=== PATIENT | female | born 1995 | race Caucasian/White ===

== ENCOUNTER 2016-11-22 21:20 | Emergency (ER) | payer OTHER ==
[~2016-11-22 21:20] MED LIST: IBUP-232 PO; JUNETAB PO; ZOFR4TAB3 SL; ZOLP10TA3 PO
--- NOTE | 2016-11-22 22:54 | PD ---
HPI Chief Complaint right lower quadrant pain Date Seen: November 22, 2016 Time Seen: 22:00 Travel History International Travel<30 Days: No Contact w/Intl Traveler<30Days: No Known Affected Area: No History of Present Illness HPI Pt is a 21 y/o with IUP at 16 wks who presents with c/o RLQ pain in groin area. Pt reports intermittent pain for past week, but continuous since this morning. Pain is constant, sharp. denies vb, lof, vag discharge. +FM denies diarrhea, dysuria, constipation, fever did have emesis x 2 today but ate at 5 pm Para: 1 : 2 History Past Medical History Medical History: Denies Significant Hx Obstetric History Obstetric History 2013 primary CD for "did not dilate past 2 cm" Past Surgical History Narrative Surgical Family History Family History: Negative Social History Alcohol Use: No Tobacco Use: No Substance Abuse: No Allergies-Medications (Allergen,Severity, Reaction): Coded Allergies: No Known Allergies (Verified , 07/31/15) Home Meds Active Scripts Ondansetron (Zofran ODT)4 Mg Tab4 Mg SL Q6H PRN (nausea) #30 TAB FOR NAUSEA/VOMITING Prov:Brady Mcknight MD 08/01/15 Ibuprofen (Motrin)600 Mg Pab494 Mg PO TID #45 TAB Prov:Brady Mcknight MD 08/01/15 Reported Medications Norethindrone Acet & Eth Estra (08/13)21 Tab Pack1 Tab PO DAILY 07/31/15 Zolpidem Tartrate (Ambien 10 Mg Tab)10 Mg Tab10 Mg PO HS 07/31/15 Review of Systems General / Constitutional: No: Fever, Chills Eyes: No: Diploplia, Blurred Vision, Visual changes, Pain, Photophobia, Other Cardiovascular: No: Irregular Rhythm, Chest Pain or Discomfort, Palpitations, Tachycardia, Syncope, Varicosities, Edema, Cyanosis, Other Respiratory: No: Cough, Short of Breath, Wheezing, Other Gastrointestinal: Nausea, Vomiting, Abdominal Pain, No: Constipation Genitourinary: No: Dysuria, Vaginal Bleeding Musculoskeletal: No: Limited ROM, Weakness, Cramping, Edema, Pain, Other Skin: No Rash, No Itching, No Dryness, No Lumps, No Change in Pigmentation, No Change in Nails, No Alopecia, No Lesions, No Breast Lumps, No Breast Tenderness , No Breast Swelling, No Other Neurologic: No: Weakness, Dizziness, Syncope, Focal Abnormalities, Coordination Problem, Headache, Slurred Speech, Seizures, Other Psychiatric: No: Anxiety, Depression, Suicidal Ideations, Disorder of Thought, Mood Disorder, Substance Abuse, Homicidal Ideation, Other Endocrine: No: Heat Intolerance, Cold Intolerance, Polydipsia, Polyuria, Other Hematologic/Lymphatic: No Easy Bruising, No Lymph Node Enlargement, No Other Physical Exam 128/77, 90, 18 Narrative GENERAL: Well-nourished, well-developed patient. SKIN: Warm and dry. HEAD: Normocephalic and atraumatic. EYES: No scleral icterus. No injection or drainage. ENT: No nasal drainage noted. Mucous membranes pink. Airway patent. NECK: Supple, trachea midline. No JVD. CARDIOVASCULAR: Regular rate and rhythm without murmurs, gallops, or rubs. RESPIRATORY: Breath sounds equal bilaterally. No accessory muscle use. . ABDOMEN/GI: Abdomen soft,, bowel sounds present, no rebound, no guarding Gravid mildly tender to palpation right groin/LQ GENITOURINARY: External Genitalia: intact and normal in appearance BUS glands: [wnl-] Cervix: post Dilatation: closed Effacement: firm/long Station: high Presentation: - Membranes: intact Uterine Contractions: none FHT's: 136 by doppler EXTREMITIES: No cyanosis or edema. BACK: Nontender without obvious deformity. No CVA tenderness. NEUROLOGICAL: Awake and alert. Motor and sensory grossly within normal limits. Five out of 5 muscle strength in all muscle groups. Normal speech. Data Data Vital Signs Reviewed: Yes MDM Narrative Course / MDM 21 y/o with 16 wk IUP and right lower quadrant pain --suspect round ligament pain, potentially exacerbated by previous --discussed supportive measures such as rest, heat/ice, tylenol, belly band --advised pt to return for worsening symptoms or fever, n/v (rule out appy) Diagnosis Diagnosis: Primary Impression: Right lower quadrant abdominal pain Additional Impression: 16 weeks gestation of Disposition: 01 DISCHARGE HOME Condition: Stable Patient Instructions: General Instructions, Movement (ED), Abdominal Pain in (ED) Departure Forms: Tests/Procedures Tyree Bowers MD November 22, 2016 22:54
== END 2016-11-22 22:59 | disposition home or self-care (01) ==
LOC: HOBED 21:20
DX: O26.892 Other specified pregnancy related conditions, second trimester (principal); R10.31 Right lower quadrant pain; Z3A.16 16 weeks gestation of pregnancy
CPT/HCPCS: 99283

== ENCOUNTER 2017-03-23 12:54 | Emergency (ER) | payer OTHER ==
[2017-03-23] VITALS (12 sets, daily range): BP systolic 96–145; BP diastolic 48–87; PULSE 96–129; RESP 18; TEMP 98.1
--- NOTE | 2017-03-23 13:42 | PD ---
HPI Chief Complaint Blurry vision and blood pressure elevation Date Seen: Mar 23, 2017 Travel History International Travel<30 Days: No Contact w/Intl Traveler<30Days: No Known Affected Area: No History of Present Illness HPI Patient is 22-year-old white female previous now at [address] Farris for care. 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 She checked her blood pressure and was 150/ 90 she has no history of hypertension during this or previously in her life, she denies pain leakage of fluid or bleeding. heart tones are reactive and she is having no regular contractions. Her blood pressure here on OB ED is 130 over 70s on 2 checks, she has no protein in her urine and waiting on the lab PIH values Weeks Gestation: 33 Para: 1 : 2 History Obstetric History Obstetric History 1 Past Surgical History Narrative Surgical 1 Social History Alcohol Use: No Tobacco Use: No Substance Abuse: No Allergies-Medications (Allergen,Severity, Reaction): Coded Allergies: No Known Allergies (Verified , 07/31/15) Home Meds Active Scripts Ondansetron (Zofran ODT) 4 Mg Tab, 4 MG SL Q6H Y for nausea, #30 TAB FOR NAUSEA/VOMITING Prov:Brady Mcknight MD 08/01/15 Ibuprofen (Motrin) 600 Mg Tab, 600 MG PO TID, #45 TAB Prov:Brady Mcknight MD 08/01/15 Reported Medications Norethindrone Acet & Eth Estra (08/13) 21 Tab Pack, 1 TAB PO DAILY, PACK 07/31/15 Zolpidem Tartrate (Ambien 10 Mg Tab) 10 Mg Tab, 10 MG PO HS, TAB 07/31/15 Review of Systems General / Constitutional: No: Fever, Weight Gain, Chills, Other Eyes: Blurred Vision, No: Diploplia, Visual changes, Pain, Photophobia HENT: No: Headaches, Vertigo, Lightheadedness Cardiovascular: No: Irregular Rhythm, Chest Pain or Discomfort, Palpitations, Tachycardia, Syncope, Varicosities, Edema, Cyanosis Respiratory: No: Cough, Short of Breath, Other Gastrointestinal: Abdominal Pain, No: Nausea, Vomiting, Diarrhea Genitourinary: No: Decreased Urinary Output, Oliguria Musculoskeletal: No: Limited ROM, Weakness, Cramping, Edema, Pain Skin: No Rash, No Itching, No Dryness, No Lumps, No Change in Pigmentation, No Change in Nails, No Alopecia, No Lesions Neurologic: No: Weakness, Dizziness, Syncope, Focal Abnormalities, Coordination Problem, Headache, Slurred Speech, Seizures Psychiatric: No: Depression, Suicidal Ideations, Homicidal Ideation Endocrine: No: Heat Intolerance, Cold Intolerance, Polydipsia, Polyuria, Other Physical Exam Vital Signs Date Time Temp Pulse Resp B/P (MAP) Pulse Ox O2 Delivery O2 Flow Rate FiO2 03/23/17 13:26 98.1 18 03/23/17 13:15 114 136/75 (95) 03/23/17 13:14 114 131/78 (95) Narrative GENERAL: Well-nourished, well-developed patient. SKIN: Warm and dry. HEAD: Normocephalic and atraumatic. EYES: No scleral icterus. No injection or drainage. ENT: No nasal drainage noted. Mucous membranes pink. Airway patent. NECK: Supple, trachea midline. No JVD. CARDIOVASCULAR: Regular rate and rhythm without murmurs, gallops, or rubs. RESPIRATORY: Breath sounds equal bilaterally. No accessory muscle use. BREASTS: Bilateral exam showed no masses , no retractions, no nipple discharge. ABDOMEN/GI: Abdomen soft, non-tender, bowel sounds present, no rebound, no guarding Gravid to [-33] weeks size Fundal Height: [33-] GENITOURINARY: External Genitalia: intact and normal in appearance BUS glands: [-] Cervix: [0-] Dilatation: [0-] Effacement: [-thick] Station: [-3] Presentation: [-vtx] Membranes: [intact ] Uterine Contractions: [-no reg] FHT's: Category: [1-] Baseline: [-133] Reactive: [-yes] Variability: [-mod] Decels: [none-] EXTREMITIES: No cyanosis or edema. BACK: Nontender without obvious deformity. No CVA tenderness. NEUROLOGICAL: Awake and alert. Motor and sensory grossly within normal limits. Five out of 5 muscle strength in all muscle groups. Normal speech. 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 She does describe blurry vision to some extent here also minimal abdominal pain, heart rate tracing is reactive and no contractions. Blood pressures here on OB ED NORMAL limits 130 over 70s or better, negative urine protein, CBC CMP within normal limits, she has no pretibial edema and reflexes within normal limits Plan Patient patient's evaluations within normal limits. Preeclampsia this time. The recommend the patient to be off her feet as much as possible over the next several days and the planning long-term when she is at work to use a foreshortened hours or take longer breaks were both and she may be that she has to quit altogether due to blood pressure issues. She is scheduled for follow- up with Dr. Farris next week but can see him sooner if symptoms persist Diagnosis Diagnosis: Primary Impression: Hypertension affecting in third trimester Disposition: 01 DISCHARGE HOME Condition: Stable Wei Del Real II, MD Mar 23, 2017 13:41
[2017-03-23 14:05] LABS: HEMATOCRIT 33.5 % (35.0-46.0); MEAN CELL VOLUME 90.7 FL (80.0-100.0); MEAN CORPUSCULAR HEMOGLOBIN 30.4 PG (27.0-34.0); MEAN CORPUSCULAR HGB CONC 33.5 % (32.0-36.0); PLATELET COUNT 240 TH/MM3 (150-450); RED BLOOD COUNT 3.69 MIL/MM3 (4.00-5.30); RED CELL DISTRIBUTION WIDTH 13.4 % (11.6-17.2); REVIEW FLAG FINAL; WHITE BLOOD COUNT 10.1 TH/MM3 (4.0-11.0)
[2017-03-23 14:12] LABS: ANION GAP 12 MEQ/L (5-15); AST (GOT) 9 U/L (15-37); BICARBONATE 19.7 MEQ/L (21.0-32.0); BLOOD UREA NITROGEN 4 MG/DL (7-18); CHLORIDE 107 MEQ/L (98-107); GLOMERULAR FILTRATION RATE 136 ML/MIN (>89); POTASSIUM 3.6 MEQ/L (3.5-5.1); SODIUM (NA) 139 MEQ/L (136-145); URIC ACID 2.7 MG/DL (2.6-6.0)
[2017-03-23 14:13] LABS: ALT (GPT) 12 U/L (10-53)
[2017-03-23 14:15] LABS: ALKALINE PHOSPHATASE 124 U/L (45-117); TOTAL BILIRUBIN ADULT 0.3 MG/DL (0.2-1.0)
[2017-03-23] MEDS ORDERED: ACETAMINOPHEN 325 MG TAB PO ONE (14:15)
[2017-03-23 14:18] LABS: BLOOD, URINE NEG (NEG); GLUCOSE,URINE TRACE mg/dL (NEG); KETONE, URINE NEG (NEG); NITRITE,URINE NEG (NEG); PH, URINE 5.5 (5.0-8.5); SQUAMOUS EPITHELIAL CELL URINE <1 /hpf (0-5); URINE COLOR YELLOW (YELLW/STRAW)
[2017-03-23 14:27] LABS: COMMENT (UR) CULT NOT INDICATED; CULTURE IF INDICATED CULT NOT INDICATED
== END 2017-03-23 15:44 | disposition home or self-care (01) ==
LOC: HOBED 12:54
DX: O16.3 Unspecified maternal hypertension, third trimester (principal); Z3A.33 33 weeks gestation of pregnancy
CPT/HCPCS: 59025; 80053; 81001; 84550; 85027

== ENCOUNTER 2017-05-10 09:44 | Inpatient (IN) | payer OTHER ==
[2017-05-10] VITALS (13 sets, daily range): BP systolic 123–149; BP diastolic 58–98; PULSE 61–92; RESP 10–20; TEMP 97.7–98.2; O2SAT 98–100
[~2017-05-10] VITALS: Ht 182.9 cm; Wt 105.0 kg
[2017-05-10] MEDS ORDERED: LACTATED RINGER'S 1000 ML INJ 1,000 ML IV ONE (09:59)
[2017-05-10 10:27] LABS: AUTOMATED NEUTROPHIL # 7.9 TH/MM3 (1.8-7.7); BASOPHIL % 0.4 % (0.0-2.0); EOSINOPHIL # 0.2 TH/MM3 (0-0.4); EOSINOPHIL % 2.2 % (0.0-4.0); HEMATOCRIT 34.9 % (35.0-46.0); HEMO FLAGS DIFF FINAL; LYMPH % 18.2 % (9.0-44.0); MEAN CELL VOLUME 86.6 FL (80.0-100.0); MEAN CORPUSCULAR HEMOGLOBIN 29.6 PG (27.0-34.0); MEAN CORPUSCULAR HGB CONC 34.2 % (32.0-36.0); MONO % 5.4 % (0.0-8.0); NEUT % 73.8 % (16.0-70.0); PLATELET COUNT 243 TH/MM3 (150-450); RED BLOOD COUNT 4.03 MIL/MM3 (4.00-5.30); RED CELL DISTRIBUTION WIDTH 14.8 % (11.6-17.2); WHITE BLOOD COUNT 10.7 TH/MM3 (4.0-11.0)
[2017-05-10] MEDS ORDERED: LACTATED RINGER'S 1000 ML INJ 1,000 ML IV SCH ×2 (10:29→17:44)
[2017-05-10 10:32] LABS: BACTERIA, URINE RARE /hpf; BLOOD, URINE NEG (NEG); COMMENT (UR) CULT NOT INDICATED; CULTURE IF INDICATED CULT NOT INDICATED; GLUCOSE,URINE NEG (NEG); HYALINE CAST, URINE 1 /lpf (RARE); KETONE, URINE NEG (NEG); NITRITE,URINE NEG (NEG); PH, URINE 7.5 (5.0-8.5); SQUAMOUS EPITHELIAL CELL URINE 3 /hpf (0-5); URINE COLOR LIGHT-YELLOW (YELLW/STRAW)
[2017-05-10] MEDS ORDERED: ceFAZolin 2 GM PREMIX 50 ML IV SCH (11:00)
[2017-05-10] MEDS ORDERED: CITRIC ACID-SODIUM CITRATE LIQ 30 ML UDC PO SCH (11:30)
--- NOTE | 2017-05-10 11:44 | HHI.HP ---
HPI Chief Complaint patient for CS at 40 weeks repeat Date Seen: May 10, 2017 Time Seen: 11:30 Travel History International Travel<30 Days: No Contact w/Intl Traveler<30Days: No Known Affected Area: No History of Present Illness HPI CS repeat for 40 weeks Weeks Gestation: 40 Para: 1 : 2 Last Menstrual Period: May 10, 2017 History Past Medical History Medical History: Denies Significant Hx Past Surgical History Surgical History: No Previous Surgery Family History Family History: Negative Social History Alcohol Use: No Tobacco Use: No Substance Abuse: No Allergies-Medications (Allergen,Severity, Reaction): Coded Allergies: No Known Allergies (Verified , 07/31/15) Home Meds Active Scripts Ondansetron (Zofran ODT) 4 Mg Tab, 4 MG SL Q6H Y for nausea, #30 TAB FOR NAUSEA/VOMITING Prov:Brady Mcknight MD 08/01/15 Ibuprofen (Motrin) 600 Mg Tab, 600 MG PO TID, #45 TAB Prov:Brady Mcknight MD 08/01/15 Reported Medications Norethindrone Acet & Eth Estra (Junel 08/13) 21 Tab Pack, 1 TAB PO DAILY, PACK 07/31/15 Zolpidem Tartrate (Ambien 10 Mg Tab) 10 Mg Tab, 10 MG PO HS, TAB 07/31/15 Review of Systems Except as stated in HPI: all other systems reviewed are Neg Physical Exam Vital Signs Date Time Temp Pulse Resp B/P (MAP) Pulse Ox O2 Delivery O2 Flow Rate FiO2 05/10/17 10:00 98.2 05/10/17 09:56 92 136/92 (107) Narrative GENERAL: Well-nourished, well-developed patient. SKIN: Warm and dry. HEAD: Normocephalic and atraumatic. EYES: No scleral icterus. No injection or drainage. ENT: No nasal drainage noted. Mucous membranes pink. Airway patent. NECK: Supple, trachea midline. No JVD. CARDIOVASCULAR: Regular rate and rhythm without murmurs, gallops, or rubs. RESPIRATORY: Breath sounds equal bilaterally. No accessory muscle use. BREASTS: Bilateral exam showed no masses , no retractions, no nipple discharge. ABDOMEN/GI: Abdomen soft, non-tender, bowel sounds present, no rebound, no guarding Gravid to 40 weeks size Fundal Height: [-] GENITOURINARY: External Genitalia: intact and normal in appearance BUS glands: [-] Cervix: [-] Dilatation: cl Effacement: [-] Station: [-] Presentation: vtx Membranes: [intact Uterine Contractions: [-] FHT's: Category: 1 Baseline: [-] Reactive: [-] Variability: [-] Decels: [-] EXTREMITIES: No cyanosis or edema. BACK: Nontender without obvious deformity. No CVA tenderness. NEUROLOGICAL: Awake and alert. Motor and sensory grossly within normal limits. Five out of 5 muscle strength in all muscle groups. Normal speech. Caprini VTE Risk Assessment Caprini VTE Risk Assessment: No/Low Risk (score <= 1) Caprini Risk Assessment Model Point Value = 1 Point Value = 2 Point Value = 3 Point Value = 5 Age 41-60 Minor surgery BMI > 25 kg/m2 Swollen legs Varicose veins or History of unexplained or recurrent spontaneous Oral contraceptives or hormone replacement Sepsis (< 1 month) Serious lung disease, including pneumonia (< 1 month) Abnormal pulmonary function Acute myocardial infarction Congestive heart failure (< 1 month) History of inflammatory bowel disease Medical patient at bed rest Age 61-74 Arthroscopic surgery Major open surgery (> 45 min) Laparoscopic surgery (> 45 min) Malignancy Confined to bed (> 72 hours) Immobilizing plaster cast Central venous access Age >= 75 History of VTE Family history of VTE Factor V Leiden Prothrombin [id number] Lupus anticoagulant Anticardiolipin antibodies Elevated serum homocysteine Heparin-induced thrombocytopenia Other congenital or acquired thrombophilia Stroke (< 1 month) Elective arthroplasty Hip, pelvis, or leg fracture Acute spinal cord injury (< 1 month) Prophylaxis Regimen Total Risk Factor Score Risk Level Prophylaxis Regimen 0-1 Low Early ambulation 2 Moderate Order ONE of the following: *Sequential Compression Device (SCD) *Heparin 5000 units SQ BID 3-4 Higher Order ONE of the following medications: *Heparin 5000 units SQ TID *Enoxaparin/Lovenox 40 mg SQ daily (WT < 150 kg, CrCl > 30 mL/min) *Enoxaparin/Lovenox 30 mg SQ daily (WT < 150 kg, CrCl > 10-29 mL/min) *Enoxaparin/Lovenox 30 mg SQ BID (WT < 150 kg, CrCl > 30 mL/min) AND/OR *Sequential Compression Device (SCD) 5 or more Highest Order ONE of the following medications: *Heparin 5000 units SQ TID (Preferred with Epidurals) *Enoxaparin/Lovenox 40 mg SQ daily (WT < 150 kg, CrCl > 30 mL/min) *Enoxaparin/Lovenox 30 mg SQ daily (WT < 150 kg, CrCl > 10-29 mL/min) *Enoxaparin/Lovenox 30 mg SQ BID (WT < 150 kg, CrCl > 30 mL/min) AND *Sequential Compression Device (SCD) Data Data Vital Signs Reviewed: Yes Orders Orders Admit To Inpatient (05/10/17 ) Code Status (05/10/17 09:59) Vital Signs (Adult) .ON ADMISSION (05/10/17 09:59) Activity Oob Ad Melissa (05/10/17 09:59) Heart (05/10/17 09:59) Urinary Catheter Management KARINA.Q8H (05/10/17 09:59) ^ Preps (05/10/17 09:59) Scd / Guillermo / Foot Pump KARNIA.QSHIFT (05/10/17 09:59) ^ Ultrasound For Locatio (05/10/17 09:59) Diet Npo (05/10/17 Breakfast) Lactated Ringer's 1000 Ml Inj (Lr 1000 M (05/10/17 09:59) Lactated Ringer's 1000 Ml Inj (Lr 1000 M (05/10/17 10:29) Cefazolin 2 Gm Premix (Ancef 2 Gm Premix (05/10/17 11:00) Citric Acid-Sodium Citrate Liq (Bicitra (05/10/17 11:30) Type And Screen (05/10/17 09:59) Complete Blood Count With Diff (05/10/17 09:59) Urinalysis - C+S If Indicated (05/10/17 09:59) Inpatient Certification (05/10/17 ) Specimen To Be Collected PRN (05/10/17 09:59) Labs Laboratory Tests Test 05/10/17 10:00 05/10/17 10:08 Urine Color LIGHT-YELLOW Urine Turbidity HAZY Urine pH 7.5 Urine Specific [place] 1.003 Urine Protein NEG Urine Glucose (UA) NEG Urine Ketones NEG Urine Occult Blood NEG Urine Nitrite NEG Urine Bilirubin NEG Urine Urobilinogen LESS THAN 2.0 Urine Leukocyte Esterase NEG Urine RBC LESS THAN 1 Urine WBC 1 Urine Squamous Epithelial Cells 3 Urine Bacteria RARE Urine Hyaline Casts 1 Microscopic Urinalysis Comment CULT NOT INDICATED White Blood Count 10.7 Red Blood Count 4.03 Hemoglobin 11.9 Hematocrit 34.9 Mean Corpuscular Volume 86.6 Mean Corpuscular Hemoglobin 29.6 Mean Corpuscular Hemoglobin Concent 34.2 Red Cell Distribution Width 14.8 Platelet Count 243 Mean Platelet Volume 9.3 Neutrophils (%) (Auto) 73.8 Lymphocytes (%) (Auto) 18.2 Monocytes (%) (Auto) 5.4 Eosinophils (%) (Auto) 2.2 Basophils (%) (Auto) 0.4 Neutrophils # (Auto) 7.9 Lymphocytes # (Auto) 2.0 Monocytes # (Auto) 0.6 Eosinophils # (Auto) 0.2 Basophils # (Auto) 0.0 CBC Comment DIFF FINAL Differential Comment Assessment/Plan Problem List: (1) 40 weeks gestation of ICD Codes: Z3A.40 - 40 weeks gestation of Assessment and Plan doing well Douglas Leiva MD May 10, 2017 11:44
[2017-05-10] MEDS ORDERED: ACETAMINOPHEN 1000 MG/100 ML 100 ML IV ONE (12:22)
[2017-05-10 12:39] LABS: BLOOD GAS BASE EXCESS 0.3 mmol/L (-2-2); BLOOD GAS O2 HGB SATURATION 7 % (90-100); CORD BLOOD GAS HCO3 26 mmol/L (21-29); CORD BLOOD GAS PCO2 59 mmHG (34-78); CORD BLOOD GAS PH 7.27 (7.14-7.42); CORD BLOOD GAS PO2 11 mmHG (3.0-40.0); DRAW SITE CORD BLOOD; STAT NO
[2017-05-10] MEDS ORDERED: oxyCODONE/ACETAMINOPHEN 5 MG/325 MG TAB PO PRN (12:45)
[2017-05-10] MEDS ORDERED: OXYTOCIN 30 UNITS-500ML PREMIX 500 ML IV ONE (12:45)
[2017-05-10] MEDS ORDERED: KETOROLAC TROMETHAMINE 60 MG/2 ML (IM) VIAL IM PRN (12:45)
[2017-05-10] MEDS ORDERED: SIMETHICONE 80 MG CHEWABLE TAB PO PRN (12:45)
[2017-05-10] MEDS ORDERED: SODIUM CHLORIDE 0.9% FLUSH 10 ML FLUSH IV FLUSH PRN (12:45)
--- NOTE | 2017-05-10 12:48 | PD.OB.DELI ---
Procedure Note Section Procedure Pre Op Diagnosis: (1) 40 weeks gestation of Post Op Diagnosis: (1) 40 weeks gestation of Performed by Douglas Leiva Procedure: Repeat Low Transverse Sec Indication for delivery: Desired elective repeat Previous condition: None Informed consent obtained: For anesthesia, For procedure Confirmed correct: Patient, Procedure, Time-out taken Anesthesia: Spinal Monitoring during procedure: Blood pressure monitoring Urinary catheter: Inserted using sterile technique, To dependent drainage Sterile preparation: Duraprep Position: Supine with wedge to left side Operative Features Skin Incision: Pfannenstiel Uterine Incision: Low transverse w/knife / blunt ext Membranes Ruptured: Artificially, Appearance of fluid (light meconium) Presentation: Occiput anterior Delivery date: May 10, 2017 Delivery time: 12:18 Delivery of : Assisted (vacuum 1 pull for 10 sec), Uneventful : Female, Single One Minute : 6 Five Minute : 9 Weight: 10 # 2 oz Status of infant: Viable Placenta delivered: Intact Medications: Antibiotics Estimated blood loss: 500 Procedure tolerated: Well Maternal Condition: Stable Condition: Stable Douglas Leiva MD May 10, 2017 12:48
--- NOTE | 2017-05-10 13:09 | MP ---
cc: DEMARCUS LEIVA M.D. DATE OF SURGERY 05/10/2017 PROCEDURE PERFORMED Repeat low transverse section. PREOPERATIVE DIAGNOSIS Previous section for 9 pounds 2 ounces . POSTOPERATIVE DIAGNOSIS Previous section for 9 pounds 2 ounces infant, [address] Demarcus Leiva ANESTHESIA Dr. Abdullahi, spinal anesthesia. COMPLICATIONS None FINDINGS 10 pounds, 2 ounce female infant, 's of 6 and 9. ESTIMATED BLOOD LOSS 500 cc SPECIMEN None PROCEDURE IN DETAIL After informed consent, the patient was taken to the operating room where she was placed under spinal anesthesia and placed in the supine position. The abdomen, perineum and vagina were prepped and draped in the normal sterile fashion. After adequate anesthesia was assured and a time-out was taken, a Pfannenstiel skin incision was carried sharply through the skin through an old scar down to the level of the fascia. The fascia was nicked in the midline and the incision was extended laterally using Fontana scissors. The rectus muscles dissected off the fascia with sharp and blunt dissection secondary to the previous section. The rectus muscle in the midline. The peritoneum was entered bluntly with a finger. The incision was extended laterally using blunt traction. The uterus was noted to be midline. A bladder flap was created by dissecting the bladder off the lower uterine segment and then a low-transverse uterine incision was then made, carried sharply into the uterine cavity. Clear fluid was noted. The incision was extended laterally using blunt traction. A hand was placed into the uterus. Using fundal pressure and the head at the incision, the head did not deliver, so at that point, a vacuum was applied to the occiput portion of the head and a gentle upward traction was given for about 10 seconds not exceeding manufactured recommended pressure. With fundal pressure, the infant's head came to the incision and delivered. The was delivered the remaining portion of the way. The cord was clamped and cut and again due to the lack of respiratory effort, we did not wait 45 seconds. The infant was handed to pediatrics in attendance. Cord blood was collected. Placenta was delivered manually. The uterus exteriorized, wiped free from all remaining products of conception. The uterine incision was then closed with a running locking stitch of chromic suture. Good hemostasis was achieved. The uterus was placed back in the abdomen, noted to be hemostatic. The peritoneum was closed with a chromic suture. The fascia was closed with Vicryl suture and the skin was closed with a subcuticular stitch. Each layer was noted to be hemostatic prior to closure and the patient tolerated the procedure well. MD MORENO Villafana/ODILIA /12:51 PM /1:00 PM
[2017-05-10] MEDS ORDERED: OXYTOCIN 30 UNITS-500ML PREMIX 500 ML ONE ×2 (13:20→14:55)
[2017-05-10] MEDS ORDERED: HYDROmorphone HCL PF 2 MG/ML VIAL ONE (13:24)
[2017-05-10] MEDS: HYDROmorphone HCL PF 2 MG/ML VIAL IV PRN ×3 (13:28→15:01)
[2017-05-10] MEDS ORDERED: METHYLERGONOVINE MALEATE 0.2 MG/ML VIAL ONE (13:40)
[2017-05-10] MEDS ORDERED: METHYLERGONOVINE MALEATE 0.2 MG/ML VIAL IM ONE (14:00)
[2017-05-10] MEDS ORDERED: EPIDURAL-DIPHENHYDRAMINE HCL 50 MG/ML VIAL IV PUSH PRN (15:15)
[2017-05-10] MEDS ORDERED: EPIDURAL-DO NOT ADMINISTER ANTICOAGULANTS PRN (15:15)
[2017-05-10] MEDS ORDERED: EPIDURAL-NO SYSTEMIC NARCOTICS PRN (15:15)
[2017-05-10] MEDS ORDERED: EPIDURAL-NALOXONE HCL 0.4 MG/ML AMP IV PUSH PRN (15:15)
[2017-05-10] MEDS: oxyCODONE/ACETAMINOPHEN 5 MG/325 MG TAB PO PRN ×2 (18:38→22:25)
[2017-05-10] MEDS ORDERED: SODIUM CHLORIDE 0.9% FLUSH 10 ML FLUSH IV FLUSH SCH (21:00)
[2017-05-10] MEDS: EPIDURAL-DIPHENHYDRAMINE HCL 50 MG CAP PO PRN (22:25)
[2017-05-10] MEDS: IBUPROFEN 600 MG TAB PO PRN (22:26)
[2017-05-10] MEDS ORDERED: OXYTOCIN 30 UNITS-500ML PREMIX 500 ML IV PRN (22:45)
[2017-05-11] VITALS: BP 113/61
[2017-05-11 04:11] VITALS: BP 107/52; PULSE 70; RESP 20; TEMP 98.4; O2SAT 99
[2017-05-11] MEDS: oxyCODONE/ACETAMINOPHEN 5 MG/325 MG TAB PO PRN (05:24)
[2017-05-11] MEDS: IBUPROFEN 600 MG TAB PO PRN ×3 (05:24→17:27)
[2017-05-11 06:09] LABS: AUTOMATED NEUTROPHIL # 8.3 TH/MM3 (1.8-7.7); BASOPHIL % 0.1 % (0.0-2.0); EOSINOPHIL # 0.2 TH/MM3 (0-0.4); EOSINOPHIL % 1.6 % (0.0-4.0); HEMATOCRIT 29.7 % (35.0-46.0); HEMO FLAGS DIFF FINAL; LYMPH % 21.9 % (9.0-44.0); LYMPHOCYTE # 2.7 TH/MM3 (1.0-4.8); MEAN CELL VOLUME 87.5 FL (80.0-100.0); MEAN CORPUSCULAR HEMOGLOBIN 29.8 PG (27.0-34.0); MONO % 7.9 % (0.0-8.0); NEUT % 68.5 % (16.0-70.0); PLATELET COUNT 190 TH/MM3 (150-450); RED CELL DISTRIBUTION WIDTH 14.7 % (11.6-17.2); WHITE BLOOD COUNT 12.1 TH/MM3 (4.0-11.0)
[2017-05-11 08:45] VITALS: BP 119/62; PULSE 86; RESP 18; TEMP 98.2
[2017-05-11] MEDS: EPIDURAL-DIPHENHYDRAMINE HCL 50 MG CAP PO PRN (09:00)
[2017-05-11] MEDS ORDERED: INFLUENZA VIRUS VACCINE (QUADRIVALENT) 0.5 ML SYR IM ONE (10:00)
[2017-05-11] MEDS ORDERED: MEASLES, MUMPS, RUBELLA VACCINE 0.5 ML VIAL SQ ONE (16:00)
[2017-05-11] MEDS ORDERED: DIPHTH/TETANUS/ACEL PERTUSSIS (BOOSTER) 0.5 ML VIAL/PFS IM ONE (16:00)
[2017-05-11 16:02] VITALS: BP 128/72; PULSE 86; RESP 16; TEMP 98.2
[2017-05-11 16:11] VITALS: BP 129/70; PULSE 89; RESP 17; TEMP 98
[2017-05-11] MEDS ORDERED: DOCUSATE SODIUM 50 MG/SENNA 8.6 MG TAB PO PRN (20:30)
[2017-05-11 20:35] VITALS: BP 126/60; PULSE 80; RESP 16; TEMP 98.4
[2017-05-11] MEDS: ACETAMINOPHEN 325 MG TAB PO PRN (20:37)
--- NOTE | 2017-05-11 23:31 | HHI.OB ---
Subjective Post Day: 1 Remarks doing well voiding , pain controlled and ambulating Objective Vitals/I&O Vital Signs Date Time Temp Pulse Resp B/P (MAP) Pulse Ox O2 Delivery O2 Flow Rate FiO2 05/11/17 20:35 98.4 80 16 126/60 (82) 05/11/17 16:11 98.0 89 17 129/70 05/11/17 16:02 98.2 86 16 128/72 05/11/17 08:45 98.2 86 18 119/62 (81) 05/11/17 04:11 70 20 107/52 (70) 05/11/17 04:11 98.4 99 05/11/17 00:00 113/61 (78) Objective Remarks GENERAL: Well-nourished, well-developed patient. ABDOMEN/GI: Abdomen soft, non-tender. Fundus: Firm, non-tender at umbilicus. GENITOURINARY: Light to moderate bleeding. EXTREMITIES: No cyanosis or edema, non-tender, without signs of DVT. Medications and IVs Current Medications Medications (Trade) Dose Ordered Sig/Lonnie Route Start Time Stop Time Status Last Admin Cefazolin Sodium/ Dextrose 50 ml @ 100 mls/hr TIME STUDY ANALYST IV 05/10/17 11:00 05/14/17 10:59 05/10/17 11:42 (Bicitra Liq) 30 ml TIME STUDY ANALYST PO 05/10/17 11:30 05/14/17 11:29 (NS Flush) 2 ml BID IV FLUSH 05/10/17 21:00 (NS Flush) 2 ml UNSCH PRN IV FLUSH 05/10/17 12:45 (Mylicon Chew) 80 mg QID PRN PO 05/10/17 12:45 (Motrin) 600 mg Q6H PRN PO 05/10/17 12:45 05/11/17 17:27 (Percocet 5-325 Mg) 1 tab Q4H PRN PO 05/10/17 12:45 05/11/17 05:24 (Percocet 5-325 Mg) 2 tab Q4H PRN PO 05/10/17 12:45 (Dilaudid Pf Inj) 0.5 mg Q5M PRN IV 05/10/17 14:00 05/10/17 15:01 ([place]-Colace) 2 tab Q12H PRN PO 05/11/17 20:30 (Tylenol) 650 mg Q4H PRN PO 05/11/17 20:30 05/11/17 20:37 Assessment/Plan Problem List: (1) 40 weeks gestation of ICD Codes: Z3A.40 - 40 weeks gestation of Assessment and Plan doing well Douglas Leiva MD May 11, 2017 23:31
--- NOTE | 2017-05-11 23:32 | HHI.DCPOC ---
Discharge Care Plan Diagnosis: (1) 40 weeks gestation of Report Symptoms to Your Doctor -Temperature above 100.5 degrees -Redness, of incision or excessive or foul smelling drainage -Unusual pain or calf pain -Increased vaginal bleeding -Painful or difficulty urinating -Feelings of extreme sadness or anxiety after 2 weeks Goals to Promote Your Health * To prevent worsening of your condition and complications * To maintain your health at the optimal level Directions to Meet Your Goals Take your medications as prescribed Follow your dietary instruction Follow activity as directed Ensure plenty of rest for recovery Drink fluids for hydration Keep your appointments as scheduled Take your immunizations and boosters as scheduled If your symptoms worsen call your PCP, if no PCP go to Urgent Care Center or Emergency Room Smoking is Dangerous to Your Health. Avoid second hand smoke Call the 24-hour crisis hotline for domestic abuse at Douglas Leiva MD May 11, 2017 23:32
[2017-05-12] MEDS: IBUPROFEN 600 MG TAB PO PRN ×2 (00:06→06:13)
[2017-05-12] MEDS: ACETAMINOPHEN 325 MG TAB PO PRN (02:25)
--- NOTE | 2017-05-12 07:43 | HHI.OB ---
Subjective Post Day: 2 Remarks doing well ready for DC home Objective Vitals/I&O Vital Signs Date Time Temp Pulse Resp B/P (MAP) Pulse Ox O2 Delivery O2 Flow Rate FiO2 05/11/17 20:35 98.4 80 16 126/60 (82) 05/11/17 16:11 98.0 89 17 129/70 05/11/17 16:02 98.2 86 16 128/72 05/11/17 08:45 98.2 86 18 119/62 (81) Objective Remarks GENERAL: Well-nourished, well-developed patient. ABDOMEN/GI: Abdomen soft, non-tender. Fundus: Firm, non-tender at umbilicus. GENITOURINARY: Light to moderate bleeding. EXTREMITIES: No cyanosis or edema, non-tender, without signs of DVT. Medications and IVs Current Medications Medications (Trade) Dose Ordered Sig/Lonnie Route Start Time Stop Time Status Last Admin Cefazolin Sodium/ Dextrose 50 ml @ 100 mls/hr ANODE REBUILDER IV 05/10/17 11:00 05/14/17 10:59 05/10/17 11:42 (Bicitra Liq) 30 ml ANODE REBUILDER PO 05/10/17 11:30 05/14/17 11:29 (NS Flush) 2 ml BID IV FLUSH 05/10/17 21:00 (NS Flush) 2 ml UNSCH PRN IV FLUSH 05/10/17 12:45 (Mylicon Chew) 80 mg QID PRN PO 05/10/17 12:45 (Motrin) 600 mg Q6H PRN PO 05/10/17 12:45 05/12/17 06:13 (Percocet 5-325 Mg) 1 tab Q4H PRN PO 05/10/17 12:45 05/11/17 05:24 (Percocet 5-325 Mg) 2 tab Q4H PRN PO 05/10/17 12:45 (Dilaudid Pf Inj) 0.5 mg Q5M PRN IV 05/10/17 14:00 05/10/17 15:01 ([place]-Colace) 2 tab Q12H PRN PO 05/11/17 20:30 (Tylenol) 650 mg Q4H PRN PO 05/11/17 20:30 10/19/17 02:25 Assessment/Plan Problem List: (1) 40 weeks gestation of ICD Codes: Z3A.40 - 40 weeks gestation of Assessment and Plan doing well Douglas Leiva MD May 12, 2017 07:43
[2017-05-12] MEDS ORDERED: OXYC1TAB63 PO (07:46)
--- NOTE | 2017-05-12 07:48 | HHI.DS ---
Admission Date May 10, 2017 at 09:44 Discharge Date: May 12, 2017 Admitting Diagnosis doing well Diagnosis: Delivery Date: May 10, 2017 : Repeat Infant: Female, Single Brief History CS repeat for 40 weeks Hospital Course doing well, dc home ppd #2 Pt Condition on Discharge: Good Discharge Disposition: Discharge Home Discharge Instructions Diet Instructions: As Tolerated, No Restrictions Activities You Can Perform: Pelvic Rest Activities to Avoid: Driving for 24 hrs Follow up Referrals: [facility] - 2 Weeks @ [facility] with Douglas Leiva MD New Medications: Oxycodone-Acetaminophen (Oxycodone-Acetaminophen) 5-325 mg Tab 1 TAB PO Q4H PRN for PAIN SCALE 3 TO 5, #30 TAB 0 Refills Discontinued Medications: Ibuprofen (Motrin) 600 Mg Tab 600 MG PO TID, #45 TAB Norethindrone Acet & Eth Estra (08/13) 21 Tab Pack 1 TAB PO DAILY, PACK Ondansetron (Zofran ODT) 4 Mg Tab 4 MG SL Q6H PRN for nausea, #30 TAB FOR NAUSEA/VOMITING Zolpidem Tartrate (Ambien 10 Mg Tab) 10 Mg Tab 10 MG PO HS, TAB Douglas Leiva MD May 12, 2017 07:48
[2017-05-12 08:00] VITALS: BP 123/69; PULSE 80; RESP 18; TEMP 98.6
== END 2017-05-12 10:00 | disposition home or self-care (01) | DRG 766 ==
LOC: H2EB 09:44 → H1EA 15:23
PROVIDERS: ADMIT Obstetrics & Gynecology; ATTEND Obstetrics & Gynecology
PROC: 10D00Z1 Extraction of Products of Conception, Low, Open Approach (ICD-10-PCS; principal; 2017-05-10)
DX: O34.211 Maternal care for low transverse scar from previous cesarean delivery (principal); Z23 Encounter for immunization; Z37.0 Single live birth; Z3A.40 40 weeks gestation of pregnancy
CPT/HCPCS: 59025; 81001; 82805; 85025; 85461; 86850; 86900; 86901; 90384; 90686; 90715; J0131; J0690; J1170; J2210; J2590; J2790; J3010; J7120; Q0163; Q2038